=== PATIENT | female | born 1970 | race African-American/Black ===

== ENCOUNTER 2017-12-19 19:34 | Emergency (ER) | payer MEDICAID ==
[~2017-12-19] VITALS: Ht 177.8 cm; Wt 129.3 kg
[2017-12-19] MEDS ORDERED: METHIMAZOLE10 MG PO (19:45)
[2017-12-19] MEDS ORDERED: HYDROCHLOROTHIA25 MG ORAL (19:45)
[2017-12-19] MEDS ORDERED: AMLODIPINE BESYL5 MG ORAL (19:45)
--- NOTE | 2017-12-19 20:02 | Emergency Room Report ---
History of Present Illness General Chief Complaint: Chest Pain Source: Patient (Letitia Bashir) Present Illness HPI 47 YO Female Presents to the ED c/o 05/17 in severity Sternal CP 3 days ago that radiated to the right side of the chest, and now involves the right arm. Pt. denies trauma or fall. pt reports significant tenderness to the medial brachial area. Pt. reports only Pmhx is for HTN. She denies strenuous activities. pt. describes intermittent electrical pains in the right arm. Pt. reports some swelling to the right upper arm. Pain is exacerbated with raising her arm and with lying her arm completely flat. pt. denies neck or back pain. pt. denies coughing or recent URI. pt. reports some difficulty breathing. Denies Estrogen medications. Denies recent travel, or claudication. (Letitia Bashir) Allergies: Coded Allergies: No Known Allergies (Unverified , 12/19/17) Patient History Past Medical History: see triage record, HTN Past Surgical History: none Pertinent Family History: none Last Menstrual Period: 12/03/2017 Now: No Reviewed Nursing Documentation: PMH: Agreed; PSxH: Agreed (Letitia Bashir) Nursing Documentation-PMH Past Medical History: No History, Except For Hx Hypertension: Yes (Letitia Bashir) Review of Systems All Other Systems: negative except mentioned in HPI (Letitia Bashir) Physical Exam Vital Signs Date Time Temp Pulse Resp B/P (MAP) Pulse Ox O2 Delivery O2 Flow Rate FiO2 12/19/17 19:39 98.5 87 16 132/87 97 Room Air 98.4 Sp02 EP Interpretation: reviewed, normal General Appearance: no apparent distress, alert, GCS 15, non-toxic, obese Head: normocephalic, atraumatic ENT: hearing grossly normal, normal voice Neck: full range of motion Respiratory: lungs clear, normal breath sounds, speaking full sentences, other - tachypenic , Chest TTP anteriorly Cardiovascular #1: regular rate, rhythm, no edema - Right UE, normal capillary refill Cardiovascular #2: 2+ radial (R), 2+ radial (L) Rectal: deferred Genitourinary: normal inspection Musculoskeletal: back normal, gait/station normal, normal range of motion, non- tender Neurologic: alert, oriented x3, responsive, motor strength/tone normal, sensory intact, normal gait, speech normal, grossly normal Psychiatric: judgement/insight normal Skin: normal color, no rash, warm/dry, well hydrated (Letitia Bashir) Medical Decision Making PA Attestation Dr. Gee is my supervising Physician whom patient management has been discussed with. (Letitia Bashir) Medicare Attestation Please refer to the initial note for the history exam and presentation At this time currently at time of dictation patient resting comfortably Secondary evaluation reveals benign exam Patient had pain with attempts of moving the right arm However neurologically neurovascularly intact good pulses Sensory is appropriate Patient ultrasound was negative for DVT CT angios the chest is also negative Patient's EKG was normal Blood work appropriate Patient remains hemodynamically stable At this time again resting comfortably without signs of acute distress The acute ideology of the discomfort is not clear however does not appear to be cardiac or pulmonary Patient also vascular pathology negative at this time Given the extensive workup given the patient's reevaluation Patient stable for close outpatient follow-up (Callum White DO) Diagnostic Impression: Primary Impression: Upper extremity pain Qualified Codes: M79.601 - Pain in right arm Additional Impression: Chest pain ER Course 47 YO Female Presents to the ED c/o 05/17 in severity Sternal CP 3 days ago that radiated to the right side of the chest, and now involves the right arm. Pt. denies trauma or fall. pt reports significant tenderness to the medial brachial area. Pt. reports only Pmhx is for HTN. She denies strenuous activities. pt. describes intermittent electrical pains in the right arm. Pt. reports some swelling to the right upper arm. Pain is exacerbated with raising her arm and with lying her arm completely flat. pt. denies neck or back pain. pt. denies coughing or recent URI. pt. reports some difficulty breathing. Denies Estrogen medications. Denies recent travel, or claudication. Ddx considered but are not limited to DVT, NH, pneumonia, contusion, costochondritis, PE, ACS, Shoulder strain, Chest wall contusion, SVC just to name a few. Vital signs: are WNL, pt. is afebrile H&PE are most consistent with Possible RUE DVT ORDERS: - EKG: -CBC: -CMP -CK-MB -Troponins CXR: -CTA Chest: - CT Chest Non-contrast - Upper extremity Venous Duplex US: ED INTERVENTIONS: -IV Acess -10mg Morphine DISCHARGE: At this time pt. is stable for d/c to home. Will provide printed patient care instructions, and any necessary prescriptions. Care plan and follow up instructions have been discussed with the patient prior to discharge. Labs Test 12/19/17 20:13 White Blood Count 8.1 K/UL (4.8-10.8) Red Blood Count 4.23 M/UL (4.20-5.40) Hemoglobin 12.3 G/DL (12.0-16.0) Hematocrit 35.5 % (37.0-47.0) Mean Corpuscular Volume 84 FL (80-99) Mean Corpuscular Hemoglobin 29.0 PG (27.0-31.0) Mean Corpuscular Hemoglobin Concent 34.6 G/DL (32.0-36.0) Red Cell Distribution Width 13.0 % (11.6-14.8) Platelet Count 315 K/UL (150-450) Mean Platelet Volume 6.7 FL (6.5-10.1) Neutrophils (%) (Auto) 60.8 % (45.0-75.0) Lymphocytes (%) (Auto) 29.4 % (20.0-45.0) Monocytes (%) (Auto) 6.3 % (1.0-10.0) Eosinophils (%) (Auto) 1.5 % (0.0-3.0) Basophils (%) (Auto) 2.0 % (0.0-2.0) Prothrombin Time 9.3 SEC (9.30-11.50) Prothromb Time International Ratio 0.9 (0.9-1.1) Activated Partial Thromboplast Time 26 SEC (23-33) Sodium Level 136 MMOL/L (136-145) Potassium Level 3.5 MMOL/L (3.5-5.1) Chloride Level 103 MMOL/L (98-107) Carbon Dioxide Level 27 MMOL/L (21-32) Anion Gap 6 mmol/L (5-15) Blood Urea Nitrogen 12 mg/dL (7-18) Creatinine 1.0 MG/DL (0.55-1.30) Estimat Glomerular Filtration Rate > 60 mL/min (>60) Glucose Level 122 MG/DL (74-106) Calcium Level 8.8 MG/DL (8.5-10.1) Total Bilirubin 0.1 MG/DL (0.2-1.0) Aspartate Amino Transf (AST/SGOT) 10 U/L (15-37) Alanine Aminotransferase (ALT/SGPT) 15 U/L (12-78) Alkaline Phosphatase 71 U/L (46-116) Total Creatine Kinase 74 U/L (26-308) Creatine Kinase MB < 0.5 NG/ML (0.0-3.6) Creatine Kinase MB Relative Index 0.6 Troponin I 0.000 ng/mL (0.000-0.056) Total Protein 7.7 G/DL (6.4-8.2) Albumin 3.3 G/DL (3.4-5.0) Globulin 4.4 g/dL Albumin/Globulin Ratio 0.8 (1.0-2.7) (Letitia Bashir P.A.) EKG Diagnostic Results EP Interpretation: Terrie Gee Rate: normal - 82 Rhythm: NSR ST Segments: no acute changes ASA given to the pt in ED: No PA Scribe Text This Interpretation was scribed by GAMAL Bashir. (Letitia Bashir P.A.) Chest X-Ray Diagnostic Results Chest X-Ray Diagnostic Results : Chest X-Ray Ordered: Yes # of Views/Limited/Complete: 1 View Indication: Shortness of Breath EP Interpretation: Yes PA Xray: Interpretation reviewed, by supervising MD, and agrees with findings. Interpretation: no consolidation, no effusion, no pneumothorax, no acute cardiopulmonary disease Impression: No acute disease Electronically Signed by: Letitia Bashir PA-C (Letitia Bashir P.A.) CT/MRI/US Diagnostic Results CT/MRI/US Diagnostic Results #1: Imaging Test Ordered: CT Chest Non-Contrast Impression "No evidence of PE, lungs are clear no pleural effusions no adenopathy heart size is normal aorta is unremarkable. "Per official radiology report- Please see report for specific details. CT/MRI/US Diagnostic Results #2: Imaging Test Ordered: CT Chest with Contrast Impression " " Per official radiology report- Please see report for specific details. CT/MRI/US Diagnostic Results #3: Imaging Test Ordered: Unilateral Right UE Venous US Impression Negative for DVT. (Letitia Bashir) CT/MRI/US Diagnostic Results : Impression CTA chest no acute disease (Callum White DO) Last Vital Signs Date Time Temp Pulse Resp B/P (MAP) Pulse Ox O2 Delivery O2 Flow Rate FiO2 12/19/17 19:39 98.5 87 16 132/87 97 Room Air 98.4 (Letitia Bashir) Status: improved (Callum White DO) Disposition: HOME, SELF-CARE Condition: Improved Signed Out To: Dr. White (Letitia Bashir) Additional Instructions: Patient is provided with the discharge instructions notified to follow up with primary doctor in the next 2-3 days otherwise return to the er with any worsening symptoms. Please note that this report is being documented using [employer] technology. This can lead to erroneous entry secondary to incorrect interpretation by the dictating instrument. Letitia Bashir December 19, 2017 20:02 Callum White DO December 20, 2017 00:17
[2017-12-19] MEDS ORDERED: Morphine Sulfate 10mg/ml Inj IM ONE (20:15)
[2017-12-19] MEDS ORDERED: Morphine Sulfate 10mg/ml Inj IVP ONE (20:30)
[2017-12-19 20:36] LABS: EOSINOPHILS % (AUTO) 1.5 % (0.0-3.0); HEMATOCRIT 35.5 % (37.0-47.0); HEMOGLOBIN 12.3 G/DL (12.0-16.0); LYMPHOCYTES % (AUTO) 29.4 % (20.0-45.0); MEAN CORPUSCULAR VOLUME 84 FL (80-99); MONOCYTES % (AUTO) 6.3 % (1.0-10.0); NEUTROPHILS % (AUTO) 60.8 % (45.0-75.0); PLATELET COUNT 315 K/UL (150-450); RED BLOOD COUNT 4.23 M/UL (4.20-5.40); WHITE BLOOD COUNT 8.1 K/UL (4.8-10.8)
[2017-12-19 20:47] LABS: ANION GAP 6 mmol/L (5-15); BLOOD UREA NITROGEN 12 mg/dL (7-18); CALCIUM 8.8 MG/DL (8.5-10.1); CARBON DIOXIDE 27 MMOL/L (21-32); CHLORIDE 103 MMOL/L (98-107); POTASSIUM 3.5 MMOL/L (3.5-5.1); SODIUM 136 MMOL/L (136-145)
[2017-12-19] MEDS ORDERED: Isovue-370 150ml vial INJ PRN (21:00)
[2017-12-19] MEDS ORDERED: Morphine Sulfate 4mg/ml Inj IVP ONE (21:00)
[2017-12-19 21:01] LABS: ALANINE AMINOTRANSFERASE 15 U/L (12-78); ALBUMIN 3.3 G/DL (3.4-5.0); ALBUMIN/GLOBULIN RATIO 0.8 (1.0-2.7); ALKALINE PHOSPHATASE 71 U/L (46-116); ASPARTATE AMINO TRANSFERASE 10 U/L (15-37); BILIRUBIN,TOTAL 0.1 MG/DL (0.2-1.0); CKMB < 0.5 NG/ML (0.0-3.6); CREATINE KINASE 74 U/L (26-308)
[2017-12-19 22:15] VITALS: BP 122/78
[2017-12-19 22:23] LABS: INR 0.9 (0.9-1.1)
[2017-12-20] MEDS ORDERED: IBUPROFEN600 MG ORAL (00:18)
[2017-12-20 00:30] VITALS: BP 119/81
--- NOTE | 2017-12-20 10:02 | Diagnostic Imaging Report ---
Indication: Abdominal pain Technique: One view of the chest Comparison: none Findings: Lungs and pleural spaces are clear. Heart size is normal Impression: No acute process
--- NOTE | 2017-12-20 10:46 | Diagnostic Imaging Report ---
Clinical Indication: Chest pain x3 days Technique: Spiral acquisitions obtained through the chest. No IV contrast utilized, reason not stated. Multiplanar reconstructions generated. Total dose length product 1000.01 mGycm. CTDIvol(s) 25.48 mGy. Dose reduction achieved using automated exposure control Comparison: none Findings: The lungs and pleural spaces are unremarkable. The heart size is normal. There is no evidence of pericardial effusion. No mediastinal or hilar mass or adenopathy. No axillary mass or adenopathy. Multiple nodules are seen in both breasts. The largest of these on the right is used to centimeters in diameter, demonstrates fluid attenuation. Other nodules in both breasts demonstrate nonspecific soft tissue attenuation. The bones are unremarkable. The included upper abdominal anatomy demonstrates a 1 cm fat attenuation lesion in the right hepatic lobe. Impression: No acute abnormality Bilateral breast nodules, not clearly cystic. Recommend further evaluation with mammography and ultrasound if these have not been worked up previously. Note that this represents a mild discrepancy from the [facility] preliminary report, and was reported to Dr. 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
--- NOTE | 2017-12-20 11:36 | Diagnostic Imaging Report ---
ndication: Chest pain, shortness of breath Technique: IV administration nonionic contrast. Spiral acquisitions obtained from the lung bases to the lung apices. Multiplanar and 3-D reconstructions were generated. Total dose length product 862.8 mGycm. CTDIvol(s) 28.88 mGy. Dose reduction achieved using automated exposure control Comparison: Noncontrast CT scan performed 2 hours earlier Findings: No intraluminal filling defects or other findings to suggest acute pulmonary embolus are demonstrated. No thoracic aortic aneurysm or dissection. No right ventricular dilatation or pulmonary artery dilatation. The lungs and pleural spaces remain clear. No mediastinal or hilar mass or adenopathy demonstrated. The heart size is normal. No pericardial effusion. The included portions of the thyroid are unremarkable. Again demonstrated are bilateral breast nodules including a cyst on the right. No axillary mass or adenopathy. The included upper abdominal viscera demonstrate a 1 cm fat attenuation lesion in the right hepatic lobe Impression: Negative for evidence of acute pulmonary embolus No acute abnormality demonstrated Bilateral breast nodules, previously reported Right hepatic lobe 1 cm lipoma This agrees with the preliminary interpretation provided overnight by [facility] teleradiology service. The CT scanner at [facility] is accredited by the [employer] and the scans are performed using protocols designed to limit radiation exposure to as low as reasonably achievable to attain images of sufficient resolution adequate for diagnostic evaluation.
--- NOTE | 2017-12-20 14:32 | Cardiology Report ---
APPROVED REPORT EKG Measurement Heart [id number] Normal sinus rhythm Normal ECG
== END 2017-12-20 00:30 | disposition home or self-care (01) ==
LOC: EMR 20:19 → CANBEDREQ 12-20 00:07 → EMR 12-20 00:30
DX: R07.9 Chest pain, unspecified (principal); M79.601 Pain in right arm
CPT/HCPCS: 36415; 71045; 71250; 71275; 80053; 82550; 82553; 84484; 85025; 85610; 85730; 93005; 93971; 96372; 96374; 96375; 99284; J2270; Q9967